=== PATIENT | female | born 1985 | race Caucasian/White ===

== ENCOUNTER → 2017-01-31 | Outpatient (CLI) | payer OTHER ==
--- NOTE | 2017-01-31 11:23 | DI ---
PA /LATERAL CHEST X-RAY, 01/31/2017 9:28 AM : Clinical History: Cough. Previous Exam: None at this facility. There is no acute soft tissue or bony abnormality. Heart size is normal. Lungs are clear. Mediastinal structures are normal. There are no pulmonary nodules. Reading: Normal chest x-ray.
--- NOTE | 2017-01-31 11:25 | DI ---
SINUS SERIES, 01/31/2017 9:28 AM: Clinical History: Sinusitis. Previous Exam: None at this facility. 5 are submitted. There is no abnormality of the frontal, ethmoid, maxillary, or sphenoid sinuses. Th e petrous pyramids are also normal. Reading: Normal sinus series.
== END ==
LOC: MOB RAD 09:31
PROVIDERS: ATTEND Physician Assistant
DX: R05 Cough (principal); J32.9 Chronic sinusitis, unspecified; F17.200 Nicotine dependence, unspecified, uncomplicated
CPT/HCPCS: 70220; 71020